=== PATIENT | female | born 1970 | race Caucasian/White ===

== ENCOUNTER → 2017-05-30 | Outpatient (CLI) | payer OTHER ==
--- NOTE | 2017-05-30 09:59 | MM ---
Reason for exam: clinical finding. Last mammogram was performed 2 years and 1 month ago. Indicated problem(s): lump or thickening in the left breast. Physical Findings: Nurse Summary: 1cm nodule in the left breast at 7 o'clock (nurse mj). MG Diagnostic Mammo w CAD [facility] Bilateral CC and MLO view(s) were taken. Prior study comparison: April 14, 2015, bilateral MG 3d diag mammo w/cad F[facility]. August 06, 2013, CAD bilateral diagnostic mammogram. The breast tissue is heterogeneously dense. This may lower the sensitivity of mammography. No suspicious abnormality. No significant new findings when compared with previous films. These results were verbally communicated with the patient and result sheet given to the patient on 05/30/17. ASSESSMENT: Negative, BI-RAD 1 RECOMMENDATION: Routine screening mammogram of both breasts in 1 year.
--- NOTE | 2017-05-30 10:00 | USB ---
Reason for exam: clinical finding. Indicated problem(s): lump or thickening in the left breast. US Breast LT Left breast ultrasound includes all four quadrants, the retroareolar region and axilla. Finding demonstrates duct ectasia at the posterior nipple. These results were verbally communicated with the patient and result sheet given to the patient on 05/30/17. ASSESSMENT: Benign, BI-RAD 2 RECOMMENDATION: Routine screening mammogram of both breasts in 1 year.
== END | disposition home or self-care (01) ==
LOC: RADMAMWWP 08:17
PROVIDERS: ATTEND Internal Medicine
DX: N63.20 Unspecified lump in the left breast, unspecified quadrant (principal)
CPT/HCPCS: 77066

== ENCOUNTER → 2017-10-12 | Outpatient (CLI) | payer OTHER ==
[2017-10-12 09:06] LABS: Basophils % (A) 1 %; Eosinophils # (A) 0.3 k/uL (0-0.7); Eosinophils % (A) 6 %; HGB 12.8 gm/dL (11.4-16.0); Lymphocytes # (A) 1.8 k/uL (1.0-4.8); Lymphocytes % (A) 32 %; MCH 31.3 pg (25.0-35.0); MCHC 33.6 g/dL (31.0-37.0); MCV 93.3 fL (80.0-100.0); Mean Platelet Volume 7.4; Monocytes # (A) 0.3 k/uL (0-1.0); Monocytes % (A) 6 %; Neutrophils # (A) 2.9 k/uL (1.3-7.7); Neutrophils % (A) 53 %; Platelet Count 228 k/uL (150-450); RBC 4.07 m/uL (3.80-5.40); WBC 5.6 k/uL (3.8-10.6)
[2017-10-12 09:50] LABS: D-Dimer 0.27 mg/L FEU (<0.60)
[2017-10-12 11:58] LABS: ALT 33 U/L (9-52); AST 23 U/L (14-36); Albumin 4.1 g/dL (3.5-5.0); Alkaline Phosphatase 86 U/L (38-126); Anion Gap 11 mmol/L; Blood Urea Nitrogen 14 mg/dL (7-17); Calcium 9.6 mg/dL (8.4-10.2); Carbon Dioxide 25 mmol/L (22-30); Chloride 106 mmol/L (98-107); Glucose 95 mg/dL (74-99); Potassium 4.4 mmol/L (3.5-5.1); Sodium 142 mmol/L (137-145); Total Bilirubin 0.5 mg/dL (0.2-1.3); Total Protein 6.7 g/dL (6.3-8.2)
[2017-10-12 12:13] LABS: T4, Free (Free Thyroxine) 1.21 ng/dL (0.78-2.19)
[2017-10-12 16:42] LABS: Vitamin D 25 Hydroxy 19.2 ng/mL (30.0-100.0)
[2017-10-12 17:28] LABS: Cardiolipin Ab IgG Interp NEGATIVE (NEGATIVE); Cardiolipin Ab IgM Interp NEGATIVE (NEGATIVE); Cardiolipin IgM Antibody 3.3 U/mL
[2017-10-13 12:33] LABS: Cardiolipin IgA Antibody <0.5 U/mL
[2017-10-15 10:23] LABS: Anti-Thrombin III Antigen 104 % (80 - 120); Protein S Antigen 106 % (50 - 140)
[2017-10-16 10:06] LABS: Protein C Antigen 199 % (72-160)
[2017-10-16 11:03] LABS: APTT 36 Sec(s) (<43); Dilute Russell Viper Venom 42 Sec(s) (<44)
[2017-10-16 12:49] LABS: Anti-Thrombin III Activity 108 % (79-109)
[2017-10-16 13:21] LABS: Protein C (Activity) >150 % (71-138)
== END | disposition home or self-care (01) ==
LOC: LABWHC1 08:31
PROVIDERS: ATTEND Nurse Practitioner Acute Care
DX: E55.9 Vitamin D deficiency, unspecified (principal); R41.3 Other amnesia; I63.9 Cerebral infarction, unspecified
CPT/HCPCS: 36415; 80053; 81240; 81291; 82306; 82607; 83090; 84439; 84443; 84481; 85025; 85300; 85301; 85302; 85303; 85305; 85306; 85379; 85384; 85613; 85670; 85730; 86147

== ENCOUNTER → 2017-10-18 | Outpatient (CLI) | payer OTHER ==
--- NOTE | 2017-10-18 15:16 | MR ---
EXAMINATION TYPE: MR brain wo/w con DATE OF EXAM: 10/18/2017 COMPARISON: 03/19/2014 MR brain HISTORY: MS TECHNIQUE: Multiplanar, multisequence images of the brain and brainstem is performed without and with utilizing 8.5 mL intravenous Gadavist gadolinium contrast. Demyelinating disease protocol with additional Sagi ttal Flair sequence performed. FINDINGS: T2 Lesions Present : Yes Approximate Number of Lesions: 17 on the right and 6 on the left supratentorially Locations Identified : Pericallosal, periventricular and subcortical Size of Reference Lesion(s): 1. 0.4 cm x 0.4 cm x 0.4 cm on axial image 24 and sagittal image 22 within the right frontal subcort ical white matter 2 0.4 cm x 0.3 cm x 0.4 cm on axial image 15 and sagittal image 7 within the left temporal subcorti desean white matter. Enhancing Lesion(s) Present: None Change from Prior: Increased within the right hemisphere instability within the left hemispheric Diffusion weighted images demonstrate no evidence of a recent infarct or other diffusion abnormality. There is no worrisome extra-axial fluid collection. The ventricular system and cisternal spaces ar e normal in size and appearance. The brain volume is age appropriate. Midline structures demonstrate normal morphology. The craniocervical junction appears within normal limits. Post contrast images demonstrate no abnormal enhancement. The dural venous sinuses appear pa tent. The visualized sinuses demonstrate mild mucosal thickening within the maxillary, ethmoid, and frontal sinuses. Sphenoid sinuses and mastoid air cells are well aerated. The globes are intact. IMPRESSION: Increase in number of white matter changes within the right hemisphere in comparison to the exam of 2 014 with stability on the left. Findings are in keeping with the patient's history of demyelinating d isease/multiple sclerosis. No enhancing lesions to indicate active demyelination.
== END | disposition home or self-care (01) ==
LOC: RADMRIMAIN 07:02
PROVIDERS: ATTEND Psychiatry & Neurology Neurology
DX: G35 Multiple sclerosis (principal); G37.9 Demyelinating disease of central nervous system, unspecified; R90.82 White matter disease, unspecified
CPT/HCPCS: 70553; A9581

== ENCOUNTER → 2017-12-31 | Outpatient (CLI) | payer OTHER ==
[2018-01-03 13:56] LABS: IgG - CSF 2.4 mg/dL (0.0 - 3.4); IgG/Albumin Index (CSF) 0.47 (0.00 - 0.77); Immunoglobulin G 766 mg/dL (700 - 1600)
== END | disposition home or self-care (01) ==
LOC: LABWHC1 08:30
PROVIDERS: ATTEND Nurse Practitioner Acute Care
DX: R90.82 White matter disease, unspecified (principal)
CPT/HCPCS: 36415; 82040; 82042; 82784; 83916

== ENCOUNTER → 2018-06-07 | Outpatient (CLI) | payer OTHER ==
--- NOTE | 2018-06-09 17:37 | MR ---
EXAMINATION TYPE: MR brain/cspine wo/w DATE OF EXAM: 06/07/2018 COMPARISON: Brain 10/18/2017. HISTORY: 48-year-old female Memory loss, fatigue, lower leg numbness, white matter changes, cervicalg ia TECHNIQUE: Multiplanar, multisequence images of the brain and brainstem is performed without and with IV contrast, utilizing 8.5 mL intravenous Gadavist gadolinium contrast is administered intravenously . Demyelinating disease protocol with additional Sagittal Flair sequence performed. Subsequent multi planar, multisequence images of the cervical spine before and after IV contrast administration. FINDINGS: BRAIN: T2 Lesions Present : Yes Approximate Number of Lesions: Approximately 15 in the right cerebral hemisphere and 8 in the left ce rebral hemisphere. Locations Identified : Pericallosal and subcortical Size of Reference Lesion(s): 1. 4 mm subcortical anterior right frontal lobe, axial image 24. 2 4 mm subcortical region left temporoparietal junction, axial image 16. Enhancing Lesion(s) Present: No T1 Hypointense Lesion(s) Present: Yes, a few lesions show subtle T1 hypointensity Change from Prior: Stable. There is some variability in counting the number of lesions but direct co mparison is made to the images from 10/18/2017. Diffusion weighted images demonstrate no evidence of a recent infarct or other diffusion abnormality. There is no worrisome extra-axial fluid collection. The ventricular system and cisternal spaces ar e normal in size and appearance. The brain volume is age appropriate. Midline structures demonstrate normal morphology. The craniocervical junction appears within normal limits. Post contrast images demonstrate no abnormal enhancement. The dural venous sinuses appear patent. Trace mucosal thickening maxillary sinuses. Globes are intact. CERVICAL SPINE: No craniocervical junction abnormality, predental space widening, or prevertebral soft tissue swellin g. Preserved alignment of the cervical spine. Mild variable intervertebral disc desiccation throughout. Mild uncovertebral joint arthropathy mid to lower cervical spine. Mild posterior disc bulging at a few levels but no large focal disc herniation or significant spinal canal stenosis. Facet arthropathy lower lumbar spine. At C2-C3, no spinal canal or neuroforaminal stenosis. Mild bilateral facet arthropathy. At C3-C4, mild bilateral facet arthropathy. There is a left paracentral discussed by complex causing mild left neuroforaminal narrowing. No spinal canal stenosis. At C4-C5, mild facet arthropathy without spinal canal or foraminal stenosis. At C5-C6, mild facet degenerative change without spinal canal or neuroforaminal stenosis. At C6-C7, mild facet and uncovertebral joint degenerative change. No significant spinal canal or neur oforaminal stenosis. At C7-T1, facet degenerative change without significant canal or foraminal stenosis. Normal course, caliber, and signal intensity of the cervical cord. No abnormal enhancement within the spinal canal. COMBINED IMPRESSION: BRAIN: 1. Stable scattered mild burden of T2 bright white matter change primarily in the subcortical and per icallosal regions of both cerebral hemispheres. No active demyelinating plaques. 2. No acute intracranial pneumonia seen. CERVICAL SPINE: 1. Mild degenerative disc desiccation variably throughout the cervical spine and scattered mild facet and uncovertebral joint arthropathy. 2. Changes result in variable mild neuroforaminal narrowing particularly at C2-C3 and C3-C4. No spina l canal stenosis. 3. No evidence for demyelinating plaques within the cervical spinal cord.
== END | disposition home or self-care (01) ==
LOC: RADMRIMAIN 18:57
PROVIDERS: ATTEND Psychiatry & Neurology Neurology
DX: M99.71 Connective tissue and disc stenosis of intervertebral foramina of cervical region (principal); M50.30 Other cervical disc degeneration, unspecified cervical region; M46.82 Other specified inflammatory spondylopathies, cervical region; R90.82 White matter disease, unspecified
CPT/HCPCS: 70553; 72156; A9585

== ENCOUNTER → 2018-06-13 | Outpatient (CLI) | payer OTHER ==
[2018-06-13 09:27] LABS: Basophils % (A) 0 %; Eosinophils # (A) 0.1 k/uL (0-0.7); Eosinophils % (A) 1 %; HCT 39.9 % (34.0-46.0); HGB 12.5 gm/dL (11.4-16.0); Lymphocytes # (A) 1.8 k/uL (1.0-4.8); Lymphocytes % (A) 28 %; MCH 29.2 pg (25.0-35.0); MCHC 31.3 g/dL (31.0-37.0); MCV 93.2 fL (80.0-100.0); Mean Platelet Volume 7.9; Monocytes # (A) 0.3 k/uL (0-1.0); Monocytes % (A) 5 %; Neutrophils # (A) 4.1 k/uL (1.3-7.7); Neutrophils % (A) 64 %; Platelet Count 249 k/uL (150-450); RBC 4.28 m/uL (3.80-5.40); RDW 14.1 % (11.5-15.5); WBC 6.4 k/uL (3.8-10.6)
[2018-06-13 17:25] LABS: Albumin 4.5 g/dL (3.80-4.90); Albumin/Globulin Ratio 2.5 (1.20-2.10); Anion Gap 9.4 mmol/L (4.00-12.00); Calcium 9.3 mg/dL (8.7-10.3); Carbon Dioxide 26.6 mmol/L (21.6-31.8); Globulin 1.8 g/dL (1.6-3.3); Potassium 4.2 mmol/L (3.5-5.5); Total Bilirubin 0.5 mg/dL (0.2-1.2); Total Protein 6.3 g/dL (6.2-8.2)
== END | disposition home or self-care (01) ==
LOC: LABWHC1 08:48
PROVIDERS: ATTEND Psychiatry & Neurology Neurology
DX: E55.9 Vitamin D deficiency, unspecified (principal); R53.83 Other fatigue; R90.82 White matter disease, unspecified
CPT/HCPCS: 36415; 80053; 82607; 82652; 84207; 85025

== ENCOUNTER → 2020-06-23 | Outpatient (CLI) | payer OTHER ==
--- NOTE | 2020-06-23 10:20 | CT ---
EXAMINATION TYPE: CT brain wo con DATE OF EXAM: 06/23/2020 COMPARISON: CT brain 03/18/2014, MR brain 06/07/2018 HISTORY: Headache CT DLP: 1183 mGycm Automated exposure control for dose reduction was used. Helical imaging through the brain. FINDINGS: The foci of demyelination within the brain seen on prior MRI are not clearly visible on CT, there is no hemorrhage or hydrocephalus. In the prepontine region, axial image #[id number] there is some artifact p resent. Some heterogeneous densities also present at this level which may be artifactual. Calvarium i s intact. Paranasal sinuses and mastoid air cells are well aerated. IMPRESSION: INDETERMINATE PREPONTINE DENSITY MAY BE ARTIFACTUAL BUT IS INDETERMINATE. BRAIN MRI COULD BE PERFORME D FOR BETTER EVALUATION
== END | disposition home or self-care (01) ==
LOC: RADCTMAIN 08:30
PROVIDERS: ATTEND Internal Medicine
DX: R51.9 Headache, unspecified (principal)
CPT/HCPCS: 70450

== ENCOUNTER → 2020-06-24 | Outpatient (CLI) | payer OTHER ==
--- NOTE | 2020-06-24 19:41 | MR ---
EXAMINATION TYPE: MR brain wo/w con DATE OF EXAM: 06/24/2020 COMPARISON: MRI brain 10/18/2017, CT brain 06/23/2020 HISTORY: Headaches, Dizziness, Hit in forehead by a scope TECHNIQUE: Multiplanar, multisequence images of the brain and brainstem is performed without and with IV contras t, utilizing 7.5 mL intravenous Gadavist . FINDINGS: Diffusion weighted images demonstrate no evidence of a recent infarct or other diffusion ab normality. There is no extra-axial fluid collection. There are scattered subcortical, periventricul ar hyperintensities on inversion recovery T2-weighted sequences some of which are more conspicuous th an on prior exam, there may be a slight interval increase in number of lesions as compared to prior a llowing for differences in technique. The ventricular system and cisternal spaces are normal in size and appearance. The brain volume is age appropriate. Midline structures demonstrate normal morphology, prepontine abnormality described in prior CT is art ifactual, there is no evident mass. The craniocervical junction appears within normal limits. Post contrast images demonstrate no abnormal enhancement. The dural venous sinuses appear patent. The visu alized sinuses are remarkable for mucoperiosteal thickening in the maxillary sinuses, ethmoid air bekah ls and the globes are intact. IMPRESSION: Nonspecific white matter demyelination may have progressed slightly in the interval, isabela elate for possible multiple sclerosis.
== END | disposition home or self-care (01) ==
LOC: RADMRIMAIN 14:14
PROVIDERS: ATTEND Internal Medicine
DX: R90.82 White matter disease, unspecified (principal)
CPT/HCPCS: 70553; A9585

== ENCOUNTER → 2020-07-14 | Outpatient (CLI) | payer OTHER ==
[2020-07-14 19:39] LABS: Basophils # (A) 0.04 X 10*3/uL (0.00-0.10); Basophils % (A) 0.7 %; Eosinophils # (A) 0.18 X 10*3/uL (0.04-0.35); Eosinophils % (A) 3.1 %; HCT 34.7 % (37.2-46.3); HGB 10.9 g/dL (12.0-15.0); Lymphocytes # (A) 2.19 X 10*3/uL (0.90-5.00); Lymphocytes % (A) 37.4 %; MCH 30.3 pg (27.0-32.0); MCHC 31.4 g/dL (32.0-37.0); MCV 96.4 fL (80.0-97.0); Mean Platelet Volume 11.2 fL (9.5-12.2); Monocytes # (A) 0.52 X 10*3/uL (0.20-1.00); Monocytes % (A) 8.9 %; Neutrophils # (A) 2.91 X 10*3/uL (1.80-7.70); Neutrophils % (A) 49.7 %; Platelet Count 237 X 10*3/uL (140-440); WBC 5.85 X 10*3/uL (4.50-10.00)
[2020-07-15 01:10] LABS: % Iron Saturation 15.32 (12.00-45.00); African American GFR (CKD) 98.2 (60.0-200.0); Albumin 4.2 g/dL (3.80-4.90); Anion Gap 10.8 mmol/L (4.00-12.00); BUN/Creat Ratio 21.25 Ratio (12.00-20.00); Calcium 9.5 mg/dL (8.7-10.3); Carbon Dioxide 21.2 mmol/L (21.6-31.8); Globulin 2.1 g/dL (1.6-3.3); Non-African American GFR(CKD) 84.8 (60.0-200.0); Potassium 4.2 mmol/L (3.5-5.5); Total Bilirubin 0.4 mg/dL (0.3-1.2); Total Protein 6.3 g/dL (6.2-8.2)
[2020-07-15 01:16] LABS: T4, Free (Free Thyroxine) 1.2 ng/dL (0.80-1.80)
[2020-07-15 01:17] LABS: Ferritin 60.5 ng/mL (10.0-291.0)
== END | disposition home or self-care (01) ==
LOC: LABWHC1 11:55
PROVIDERS: ATTEND Nurse Practitioner Acute Care
DX: Z51.81 Encounter for therapeutic drug level monitoring (principal)
CPT/HCPCS: 36415; 80053; 82306; 82607; 82728; 83540; 83550; 84207; 84439; 84443; 84466; 84481; 85025

== ENCOUNTER → 2021-12-23 | Outpatient (CLI) | payer OTHER ==
[2021-12-23 11:03] LABS: Basophils # (A) 0.05 X 10*3/uL (0.00-0.10); Basophils % (A) 0.6 %; Eosinophils # (A) 0.24 X 10*3/uL (0.04-0.35); Eosinophils % (A) 2.7 %; HCT 37.9 % (37.2-46.3); HGB 12.2 g/dL (12.0-15.0); Immature Grans, Automated 0.7 %; Lymphocytes # (A) 3.24 X 10*3/uL (0.90-5.00); Lymphocytes % (A) 36.5 %; MCHC 32.2 g/dL (32.0-37.0); MCV 93.1 fL (80.0-97.0); Mean Platelet Volume 10.8 fL (9.5-12.2); Monocytes # (A) 0.58 X 10*3/uL (0.20-1.00); Monocytes % (A) 6.5 %; NRBC Per 100 WBC 0 /100 WBCS (0.0-0.0); Platelet Count 292 X 10*3/uL (140-440); RBC 4.07 X 10*6/uL (4.10-5.20); RDW 14.4 % (11.5-14.5); WBC 8.87 X 10*3/uL (4.50-10.00)
[2021-12-23 11:30] LABS: ALT 13 U/L (8-44); AST 15 U/L (13-35); African American GFR (CKD) 84.6 (60.0-200.0); Albumin 4.2 g/dL (3.8-4.9); Alkaline Phosphatase 77 U/L (41-126); BUN/Creat Ratio 22.44 Ratio (12.00-20.00); Blood Urea Nitrogen 20.2 mg/dL (9.0-27.0); Calcium 9.4 mg/dL (8.7-10.3); Carbon Dioxide 22.5 mmol/L (20.0-27.5); Chloride 107 mmol/L (96-109); Chol/HDL Ratio 3.15 Ratio; Glucose 106 mg/dL (70-110); LDL Cholesterol,Calculated 154.2 mg/dL (0.0-131.0); Potassium 4.2 mmol/L (3.5-5.5); Sodium 142 mmol/L (135-145); Total Protein 6.2 g/dL (6.2-8.2)
== END | disposition home or self-care (01) ==
LOC: LABWHC1 07:14
PROVIDERS: ATTEND Family Medicine
DX: Z00.00 Encounter for general adult medical examination without abnormal findings (principal); Z11.59 Encounter for screening for other viral diseases
CPT/HCPCS: 36415; 80053; 80061; 84439; 84443; 85025; 86803

== ENCOUNTER → 2022-08-25 | Outpatient (CLI) | payer OTHER ==
--- NOTE | 2022-08-25 13:36 | MM ---
Reason for Exam: Additional evaluation requested from prior study. Last mammogram was performed 5 year(s) and 3 month(s) ago. Patient History: Menarche at age 12. First Full-Term at age 19. Postmenopausal. Patient has history of breast feeding. 02/25/2021, Bilateral Implants. Last menstrual period: 11/27/2012 Risk Values: Elenita 5 year model risk: 0.9%. NCI Lifetime model risk: 6.9%. Prior Study Comparison: 08/06/2013 Bilateral Diagnostic Mammogram, [facility]. 04/14/2015 Bilateral Diagnostic Mammogram, [facility]. 05/30/2017 Bilateral Diagnostic Mammogram, [facility]. Tissue Density: The breast tissue is heterogeneously dense. This may lower the sensitivity of mammography. Findings: Analyzed By CAD. Bilateral implants are intact. No new suspicious masses, calcifications or distortions. Overall Assessment: Benign, BI-RAD 2 Management: Screening Mammogram of both breasts in 1 year. A clinical breast exam by your physician is recommended on an annual basis and results should be correlated with mammographic findings. This exam should not preclude additional follow-up of suspicious palpable abnormalities. Results were given to the patient verbally at the time of exam. Electronically signed and approved by: Asad Vilchis DO
== END | disposition home or self-care (01) ==
LOC: RADMAMWWP 12:45
PROVIDERS: ATTEND Family Medicine
DX: R92.8 Other abnormal and inconclusive findings on diagnostic imaging of breast (principal); Z98.82 Breast implant status; Z78.0 Asymptomatic menopausal state
CPT/HCPCS: 77066

== ENCOUNTER → 2022-09-28 | Day surgery (SDC) | payer OTHER ==
[~2022-09-28] MED LIST: LACTATED RINGERS 1,000 ML IV SCH; LIDOCAINE 2% INJ 20 MG/ML (2 ML VIAL) ONE; PROPOFOL 10 MG/ML 20 ML VIAL IV ONE
--- NOTE | 2022-09-28 07:11 | P.GSHP ---
History of Present Illness H&P Date: 09/28/22 CHIEF COMPLAINT: Colon screen HISTORY OF PRESENT ILLNESS: The patient is a 52-year-old female who presents for colon screen. Lower endoscopy was offered for further evaluation and management. PAST MEDICAL HISTORY: Please see list. PAST SURGICAL HISTORY: Please see list. MEDICATIONS: Please see list. ALLERGIES: Please see list. SOCIAL HISTORY: No illicit drug use FAMILY HISTORY: No reports of Crohn disease or ulcerative colitis. REVIEW OF ORGAN SYSTEMS: CONSTITUTIONAL: No reports of fevers or chills. PHYSICAL EXAM: VITAL SIGNS: Stable GENERAL: Well-developed pleasant in no acute distress. HEENT: No scleral icterus. Extraocular movements grossly intact. Moist buccal mucosa. NECK: Supple without lymphadenopathy. CHEST: Unlabored respirations. Equal bilateral excursions. CARDIOVASCULAR: Regular rate and rhythm. Distal 2+ pulses. ABDOMEN: Soft, nontender, nondistended. MUSCULOSKELETAL: No clubbing, cyanosis, or edema. ASSESSMENT: 1. Colon screen. PLAN: 1. 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 hx afib, hx of colon cancer in family History of Any Multi-Drug Resistant Organisms: None Reported Past Surgical History: Adenoidectomy, Cardiac Ablation, Heart Catheterization, Tonsillectomy, Tubal Ligation, Uterine Ablation Additional Past Surgical History / Comment(s): sinus surgery Past Anesthesia/Blood Transfusion Reactions: No Reported Reaction, Motion Sickness Smoking Status: Former smoker - Past Family History Father Family Medical History: Cancer, Myocardial Infarction ([place]) Additional Family Medical History / Comment(s): skin, colon, cancer , kidney and liver cancer Brother(s) Family Medical History: Cancer, Myocardial Infarction ([place]) Additional Family Medical History / Comment(s): PACEMAKER/AICD, brain bone and lung cancer Mother Family Medical History: Cancer, Myocardial Infarction ([place]), Rheumatoid Arthritis ([place]) Additional Family Medical History / Comment(s): skin cancer Medications and Allergies Home Medications Medication Instructions Recorded Confirmed Type Levothyroxine Sodium [Synthroid] 75 mcg PO DAILY 05/29/14 09/26/22 History buPROPion HCL [Wellbutrin XL] 150 mg PO DAILY 09/03/14 09/26/22 History ALPRAZolam [Xanax] 0.5 mg PO BID PRN 06/21/21 09/26/22 History Clopidogrel Bisulfate [Plavix] 75 mg PO DAILY 06/21/21 09/26/22 History Cyanocobalamin (Vitamin B-12) 2,000 mcg PO MOWEFR 06/21/21 09/26/22 History [Vitamin B-12] Ergocalciferol [Vitamin D2 (1250 1,250 mcg PO FR 06/21/21 09/26/22 History Mcg = 22793 Iu)] Nortriptyline [Pamelor] 25 mg PO HS 06/21/21 09/26/22 History Pantoprazole [Protonix] 40 mg PO DAILY 06/21/21 09/26/22 History Sertraline [Zoloft] 100 mg PO HS 06/21/21 09/26/22 History traMADol HCL [Ultram] 50 mg PO Q6HR PRN 06/21/21 09/26/22 History Allergies Allergy/AdvReac Type Severity Reaction Status Date / Time No Known Allergies Allergy Verified 09/26/22 10:15
[2022-09-28 08:10] VITALS: TEMP 97.9
--- NOTE | 2022-09-28 09:20 | P.PCN ---
Date of Procedure: 09/28/22 Description of Procedure: PREOPERATIVE DIAGNOSIS: Colonoscopy screening POSTOPERATIVE DIAGNOSIS: Tubular adenoma sigmoid colon OPERATION: Colonoscopy to the ileocecal valve and appendiceal orifice, cecum Colonoscopy with cold forceps biopsy SURGEON: Ning Hazel MD. ANESTHESIA: MAC. INDICATIONS: The patient is an 52-year-old female who presents for colonoscopy screening. Benefits and risks were described and informed consent was obtained. DESCRIPTION OF PROCEDURE: The patient had undergone Sutab prep. The patient had been brought into the operating room and laid in the left lateral decubitus position. After adequate intravenous sedation, the rectum was examined with 2% lidocaine jelly. External hemorrhoids were encountered. The rectal tone was within normal limits. No lesions were palpated in the rectal vault. An Olympus colonoscope was advanced until the cecum, ileocecal valve and appendiceal orifice were clearly viewed. The prep was fair. No sigmoid diverticulosis was encountered. Highly redundant sigmoid colon. Colonic polyps were found and removed. No evidence of focal colitis was found. Retroflexion of the scope demonstrated grade 2 internal hemorrhoids without active bleeding or inflammation. The colon was desufflated. The patient had tolerated the procedure well. Withdrawal time was over 6 minutes. FINDINGS: Aronchick preparation quality scale 3 (1-5) Internal hemorrhoids, grade 2 External hemorrhoids, grade 2. No arteriovenous malformations. Highly redundant sigmoid colon Removal of 1 polyps: - Cold forceps biopsy at 20 cm from the anal verge, 4 mm polyp, sigmoid colon No focal colitis. RECOMMENDATIONS: Repeat colonoscopy in 3 years, 2025 Plan - Discharge Summary Discharge Rx Participant: No New Discharge Prescriptions: Continue Levothyroxine Sodium [Synthroid] 75 mcg PO DAILY buPROPion HCL [Wellbutrin XL] 150 mg PO DAILY Clopidogrel Bisulfate [Plavix] 75 mg PO DAILY Ergocalciferol [Vitamin D2 (1250 Mcg = 03398 Iu)] 1,250 mcg PO FR Cyanocobalamin (Vitamin B-12) [Vitamin B-12] 2,000 mcg PO MOWEFR ALPRAZolam [Xanax] 0.5 mg PO BID PRN PRN Reason: Anxiety traMADol HCL [Ultram] 50 mg PO Q6HR PRN PRN Reason: Migraine Headache Sertraline [Zoloft] 100 mg PO HS Pantoprazole [Protonix] 40 mg PO DAILY Nortriptyline [Pamelor] 25 mg PO HS Discharge Medication List Levothyroxine Sodium [Synthroid] 75 mcg PO DAILY 05/29/14 [History] buPROPion HCL [Wellbutrin XL] 150 mg PO DAILY 09/03/14 [History] ALPRAZolam [Xanax] 0.5 mg PO BID PRN 06/21/21 [History] Clopidogrel Bisulfate [Plavix] 75 mg PO DAILY 06/21/21 [History] Cyanocobalamin (Vitamin B-12) [Vitamin B-12] 2,000 mcg PO MOWEFR 06/21/21 [History] Ergocalciferol [Vitamin D2 (1250 Mcg = 07307 Iu)] 1,250 mcg PO FR 06/21/21 [History] Nortriptyline [Pamelor] 25 mg PO HS 06/21/21 [History] Pantoprazole [Protonix] 40 mg PO DAILY 06/21/21 [History] Sertraline [Zoloft] 100 mg PO HS 06/21/21 [History] traMADol HCL [Ultram] 50 mg PO Q6HR PRN 06/21/21 [History] Follow up Appointment(s)/Referral(s): Ning Hazel MD [STAFF PHYSICIAN] - 10/17/22 4:15 pm Patient Instructions/Handouts: *Surgery [facility] - (Anesthesia) Discharge Instructions Outpatient Surgery, Colorectal Polyps (GEN), Colonoscopy (DC) Activity/Diet/Wound Care/Special Instructions: Repeat colonoscopy 3 years, 2025 Discharge Disposition: HOME SELF-CARE
[2022-09-28 09:24] VITALS: BP 105/68; PULSE 78; RESP 18
== END | disposition home or self-care (01) ==
LOC: ORWHC2ENDO 07:38
PROVIDERS: ATTEND Surgery Plastic and Reconstructive Surgery
DX: Z12.11 Encounter for screening for malignant neoplasm of colon (principal); K63.5 Polyp of colon; Z80.0 Family history of malignant neoplasm of digestive organs; I50.9 Heart failure, unspecified; I48.91 Unspecified atrial fibrillation; E78.5 Hyperlipidemia, unspecified; E03.9 Hypothyroidism, unspecified; K21.9 Gastro-esophageal reflux disease without esophagitis; Z86.73 Personal history of transient ischemic attack (TIA), and cerebral infarction without residual deficits; G43.909 Migraine, unspecified, not intractable, without status migrainosus; Z79.02 Long term (current) use of antithrombotics/antiplatelets; Z79.899 Other long term (current) drug therapy; M19.90 Unspecified osteoarthritis, unspecified site; Z82.49 Family history of ischemic heart disease and other diseases of the circulatory system; Z87.891 Personal history of nicotine dependence; Z79.890 Hormone replacement therapy
CPT/HCPCS: 88305; 45380; J2704; J2001

== ENCOUNTER 2022-11-02 07:18 | Day surgery (SDC) | payer OTHER ==
[~2022-11-02 07:18] MED LIST changes: -LIDOCAINE 2% INJ 20 MG/ML (2 ML VIAL) ONE; -PROPOFOL 10 MG/ML 20 ML VIAL IV ONE
--- NOTE | 2022-11-02 07:38 | P.GSHP ---
History of Present Illness H&P Date: 11/02/22 CHIEF COMPLAINT: GERD HISTORY OF PRESENT ILLNESS: The patient is a 52-year-old female who presents reports gastroesophageal reflux disease. Upper endoscopy was offered for further evaluation and management. PAST MEDICAL HISTORY: Please see list. PAST SURGICAL HISTORY: Please see list. MEDICATIONS: Please see list. ALLERGIES: Please see list. SOCIAL HISTORY: No illicit drug use FAMILY HISTORY: No reports of Crohn disease or ulcerative colitis. REVIEW OF ORGAN SYSTEMS: CONSTITUTIONAL: No reports of fevers or chills. GI: Denies any blood in stools or constipation. PHYSICAL EXAM: VITAL SIGNS: Stable GENERAL: Well-developed and pleasant in no acute distress. HEENT: No scleral icterus. Extraocular movements grossly intact. Moist buccal mucosa. NECK: Supple without lymphadenopathy. CHEST: Unlabored respirations. Equal bilateral excursions. CARDIOVASCULAR: Regular rate and rhythm. Distal 2+ pulses. ABDOMEN: Soft, nondistended. MUSCULOSKELETAL: No clubbing, cyanosis, or edema. ASSESSMENT: 1. Gastroesophageal reflux disease PLAN: 1. Recommend proceeding with an upper endoscopy Past Medical History Past Medical History: Atrial Fibrillation, CVA/TIA, GERD/Reflux, Hyperlipidemia, Osteoarthritis (OA), Pneumonia, Thyroid Disorder Additional Past Medical History / Comment(s): HX: ATRIAL FIB. WHITE LESIONS ON BRAIN. 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 R/T MIGRAINE HEADACES/VERTIGO. LUPUS( TREATED WITH STEROIDS WHEN IT FLAIRS UP). HASHIMOTOS PLANTAR FASCIITIS LEFT FOOT. hx afib. History of Any Multi-Drug Resistant Organisms: None Reported Past Surgical History: Adenoidectomy, Cardiac Ablation, Heart Catheterization, Tonsillectomy, Tubal Ligation, Uterine Ablation Additional Past Surgical History / Comment(s): CARDIAC ABLATION. sinus surgery. BREAST IMPLANTS Past Anesthesia/Blood Transfusion Reactions: No Reported Reaction, Motion Sickness Past Psychological History: Anxiety, Depression, PTSD Smoking Status: Former smoker Past Alcohol Use History: Occasional Additional Past Alcohol Use History / Comment(s): QUIT SMOKING 6 yrs ago. smoked for short time. Past Drug Use History: None Reported - Past Family History Father Family Medical History: Cancer, Myocardial Infarction ([place]) Additional Family Medical History / Comment(s): skin, colon, cancer , kidney and liver cancer Brother(s) Family Medical History: Cancer, Myocardial Infarction ([place]) Additional Family Medical History / Comment(s): PACEMAKER/AICD, brain bone and lung cancer Mother Family Medical History: Cancer, Myocardial Infarction ([place]), Rheumatoid Arthritis ([place]) Additional Family Medical History / Comment(s): skin cancer Medications and Allergies Home Medications Medication Instructions Recorded Confirmed Type Levothyroxine Sodium [Synthroid] 75 mcg PO QAM 05/29/14 10/30/22 History ALPRAZolam [Xanax] 0.5 mg PO BID PRN 06/21/21 10/30/22 History Clopidogrel Bisulfate [Plavix] 75 mg PO DAILY 06/21/21 10/30/22 History Ergocalciferol [Vitamin D2 (1250 1,250 mcg PO FR 06/21/21 10/30/22 History Mcg = 00035 Iu)] Pantoprazole [Protonix] 40 mg PO PC-LUNCH 06/21/21 10/30/22 History Sertraline [Zoloft] 100 mg PO HS 06/21/21 10/30/22 History Albuterol Nebulized [Ventolin 1 dose INHALATION DAILY PRN 10/30/22 10/30/22 History Nebulized] Albuterol Sulfate [Ventolin HFA] 2 puff INHALATION BID PRN 10/30/22 10/30/22 History Fluticasone Propionate 1 spray NASAL DAILY PRN 10/30/22 10/30/22 History Liothyronine Sodium 25 mg PO QAM 10/30/22 10/30/22 History Rimegepant Sulfate [Nurtec Odt] 75 mg PO BID PRN 10/30/22 10/30/22 History Rosuvastatin [Crestor] 20 mg PO QAM 10/30/22 10/30/22 History Allergies Allergy/AdvReac Type Severity Reaction Status Date / Time No Known Allergies Allergy Verified 11/02/22 07:32
[2022-11-02 07:52] VITALS: TEMP 96.8
[2022-11-02] MEDS ORDERED: PROPOFOL 10 MG/ML 20 ML VIAL IV ONE (07:58)
[2022-11-02] MEDS ORDERED: LIDOCAINE 2% INJ 20 MG/ML (2 ML VIAL) ONE (07:58)
--- NOTE | 2022-11-02 08:12 | P.PCN ---
Date of Procedure: 11/02/22 Description of Procedure: PREOPERATIVE DIAGNOSIS: Gastroesophageal reflux disease. POSTOPERATIVE DIAGNOSIS: Gastroesophageal reflux disease. Gastritis. Diaphragmatic hiatal hernia OPERATION: Esophagogastroduodenoscopy with biopsies along antrum and duodenum SURGEON: Ning Hazel MD ANESTHESIA: MAC. INDICATIONS: The patient is a 52-year-old female who presents with reflux disease. Benefits and risks of the procedure were described. Informed consent was obtained. DESCRIPTION: The patient was brought into the endoscopy suite and laid in the left lateral decubitus position. An Olympus gastroscope was passed along the posterior oropharynx down to the distal esophagus where the squamocolumnar junction was encountered at 36 cm from the incisors. The stomach was entered and no bile reflux was found. Additional findings are listed below. Biopsies with cold forceps were obtained of the antrum. The first through third portion of the duodenum was examined. Retroflexion of the scope confirmed Hill grade 3 lower esophageal valve. The squamocolumnar junction demonstrated LA grade B erosive e sophagitis. The stomach was desufflated. The patient tolerated the procedure well. FINDINGS: Squamocolumnar junction 36 cm from the incisors. Diaphragmatic hiatus at 37 cm. Hiatal hernia, 1 cm Hill grade 3 lower esophageal valve. LA grade B erosive esophagitis. Biopsies obtained of the duodenum. Chronic gastritis with biopsies obtained. RECOMMENDATIONS: May benefit from hiatal hernia repair Recommend esophagram Plan - Discharge Summary Discharge Rx Participant: No New Discharge Prescriptions: Continue Levothyroxine Sodium [Synthroid] 75 mcg PO QAM Clopidogrel Bisulfate [Plavix] 75 mg PO DAILY Ergocalciferol [Vitamin D2 (1250 Mcg = 11916 Iu)] 1,250 mcg PO FR ALPRAZolam [Xanax] 0.5 mg PO BID PRN PRN Reason: Anxiety Albuterol Sulfate [Ventolin HFA] 2 puff INHALATION BID PRN PRN Reason: Shortness Of Breath Or Wheezing Fluticasone Propionate 1 spray NASAL DAILY PRN PRN Reason: Allergy Symptoms Sertraline [Zoloft] 100 mg PO HS Pantoprazole [Protonix] 40 mg PO PC-LUNCH Liothyronine Sodium 25 mg PO QAM Rimegepant Sulfate [Nurtec Odt] 75 mg PO BID PRN PRN Reason: MIGRAINES Rosuvastatin [Crestor] 20 mg PO QAM Albuterol Nebulized [Ventolin Nebulized] 1 dose INHALATION DAILY PRN PRN Reason: Shortness Of Breath Or Wheezing Discharge Medication List Levothyroxine Sodium [Synthroid] 75 mcg PO QAM 05/29/14 [History] ALPRAZolam [Xanax] 0.5 mg PO BID PRN 06/21/21 [History] Clopidogrel Bisulfate [Plavix] 75 mg PO DAILY 06/21/21 [History] Ergocalciferol [Vitamin D2 (1250 Mcg = 00137 Iu)] 1,250 mcg PO FR 06/21/21 [History] Pantoprazole [Protonix] 40 mg PO PC-LUNCH 06/21/21 [History] Sertraline [Zoloft] 100 mg PO HS 06/21/21 [History] Albuterol Nebulized [Ventolin Nebulized] 1 dose INHALATION DAILY PRN 10/30/22 [History] Albuterol Sulfate [Ventolin HFA] 2 puff INHALATION BID PRN 10/30/22 [History] Fluticasone Propionate 1 spray NASAL DAILY PRN 10/30/22 [History] Liothyronine Sodium 25 mg PO QAM 10/30/22 [History] Rimegepant Sulfate [Nurtec Odt] 75 mg PO BID PRN 10/30/22 [History] Rosuvastatin [Crestor] 20 mg PO QAM 10/30/22 [History] Follow up Appointment(s)/Referral(s): Ning Hazel MD [STAFF PHYSICIAN] - 12/12/22 9:15 am Patient Instructions/Handouts: Upper Endoscopy (DC), Hiatal Hernia (DC) Discharge Disposition: HOME SELF-CARE
[2022-11-02 08:27] VITALS: BP 107/55; PULSE 49; RESP 14
== END 2022-11-02 09:01 | disposition home or self-care (01) ==
LOC: ORWHC2ENDO 07:18
PROVIDERS: ATTEND Surgery Plastic and Reconstructive Surgery
DX: K29.50 Unspecified chronic gastritis without bleeding (principal); K21.00 Gastro-esophageal reflux disease with esophagitis, without bleeding; K44.9 Diaphragmatic hernia without obstruction or gangrene; Z79.890 Hormone replacement therapy; I48.91 Unspecified atrial fibrillation; Z86.73 Personal history of transient ischemic attack (TIA), and cerebral infarction without residual deficits; E78.5 Hyperlipidemia, unspecified; M19.90 Unspecified osteoarthritis, unspecified site; E06.3 Autoimmune thyroiditis; F41.9 Anxiety disorder, unspecified; F32.A Depression, unspecified; Z98.890 Other specified postprocedural states; Z90.89 Acquired absence of other organs; Z90.49 Acquired absence of other specified parts of digestive tract; Z98.51 Tubal ligation status; Z87.891 Personal history of nicotine dependence; Z86.59 Personal history of other mental and behavioral disorders; Z82.49 Family history of ischemic heart disease and other diseases of the circulatory system; Z80.0 Family history of malignant neoplasm of digestive organs; Z80.1 Family history of malignant neoplasm of trachea, bronchus and lung; Z79.899 Other long term (current) drug therapy
CPT/HCPCS: 88305; 43239; J2704; J2001